=== PATIENT | male | born 1940 | race African-American/Black ===

== ENCOUNTER 2021-10-17 18:08 | Inpatient (IN) ==
[2021-10-17] MEDS ORDERED: SODIUM CHLORIDE 0.9% 1,000 ML IV STA (18:43)
[2021-10-17 21:06] LABS: Basophils % 0.1 % (0.0-0.8); Eosinophils % 0.1 % (0.00-10.9); Hematocrit 34.1 VOL% (42.0-52.0); Immature Granulocytes % 0.6 %; Immature Granulocytes Absolute 0.09 #; Lymphocytes # 0.5 10*3/uL (1.4-4.0); Lymphocytes % 2.9 % (21.2-54.2); Mean Corpuscular HGB Conc 32.3 GM/DL (32-36); Mean Corpuscular Volume 90.2 FL (87-102); Mean Platelet Volume 10.4 FL (9.6-12.0); Monocytes % 5.4 % (1.7-12.7); Neutrophils % 90.9 % (38.7-73.9); Platelet Count 300 T/CUMM (130-400); Red Blood Count 3.78 MC/CUMM (3.8-5.5); Red Cell Distribution Width 13.2 % (9.3-17.3); White Blood Count 15.6 T/CUMM (4-12)
[2021-10-17 21:15] LABS: PT Patient Result 11.7 SECS (10.5-12.0)
[2021-10-17 21:29] LABS: Albumin 2.5 G/DL (3.4-5.0); Bilirubin,Total 0.4 MG/DL (0.20-1.00); CKMB % 2.4 %; Calcium 9.4 MG/DL (8.5-10.1); High Sensitive Troponin I* 67.2 ng/L (0-78); Osmolality,Calculated 318.1 MOS/KG (273-304); Potassium 3.8 MMOL/L (3.5-5.1); Total Protein 6.9 G/DL (6.4-8.2)
[2021-10-17 21:33] LABS: Lymphocytes 4 % (20-55); Platelet Estimate Increased; Segmented Neutrophils 91 % (50-85); Total Cells Counted 100
[2021-10-17 21:35] LABS: Hypochromasia Slight; Microcytosis Slight
[2021-10-17 21:36] LABS: Ovalocytes Slight
[2021-10-17] MEDS ORDERED: GLUCAGON 1 MG VIAL IM PRN ×2 (21:41)
[2021-10-17] MEDS ORDERED: diphenhydrAMINE CAP 25 MG CAPSULE PO PRN (21:41)
[2021-10-17] MEDS ORDERED: NICOTINE 21 MG/24 HR PATCH TRANSDERM PRN (21:41)
[2021-10-17] MEDS ORDERED: DEXTROSE 50% 25 GM/50 ML SYRINGE IV PRN (21:41)
[2021-10-17] MEDS ORDERED: DOCUSATE SODIUM 100 MG CAPSULE PO PRN (21:41)
[2021-10-17] MEDS ORDERED: ZALEPLON 5 MG CAPSULE PO PRN (21:41)
[2021-10-17] MEDS ORDERED: ONDANSETRON 4 MG/2 ML VIAL IV PRN (21:41)
[2021-10-17] MEDS ORDERED: DEXTROSE 50% 25 GM/50 ML VIAL IV PRN (21:41)
[2021-10-17] MEDS ORDERED: ACETAMINOPHEN 325 MG TABLET PO PRN (21:41)
[2021-10-17] MEDS ORDERED: guaiFENesin/DM ER 600-30 MG TABLET PO PRN (21:41)
[2021-10-17] MEDS ORDERED: hydrALAZINE 20 MG/1 ML VIAL IV PRN (21:41)
[2021-10-17] MEDS ORDERED: SODIUM CHLORIDE 0.9% 1,000 ML IV SCH (22:00)
[2021-10-18] MEDS: PIPERACILLIN/TAZOBACTAM 3,375 MG in SODIUM CHLORIDE 0.9% 100 ML IV STA ×2 (00:19→01:00)
[2021-10-18 05:11] LABS: Basophils % 0.1 % (0.0-0.8); Eosinophils % 0.1 % (0.00-10.9); Hematocrit 29.7 VOL% (42.0-52.0); Hemoglobin 9.6 GM/DL (14.0-18.0); Immature Granulocytes % 0.4 %; Immature Granulocytes Absolute 0.05 #; Lymphocytes # 0.6 10*3/uL (1.4-4.0); Lymphocytes % 4.4 % (21.2-54.2); Mean Corpuscular HGB Conc 32.3 GM/DL (32-36); Mean Corpuscular Volume 91.4 FL (87-102); Mean Platelet Volume 10.7 FL (9.6-12.0); Monocytes % 7.3 % (1.7-12.7); Neutrophils % 87.7 % (38.7-73.9); Platelet Count 277 T/CUMM (130-400); Red Blood Count 3.25 MC/CUMM (3.8-5.5); Red Cell Distribution Width 13.1 % (9.3-17.3); White Blood Count 13.5 T/CUMM (4-12)
[2021-10-18 05:36] LABS: Calcium 9.1 MG/DL (8.5-10.1); Osmolality,Calculated 321.9 MOS/KG (273-304); Potassium 3.9 MMOL/L (3.5-5.1)
[2021-10-18 05:40] LABS: Hypochromasia 1+; Lymphocytes 5 % (20-55); Segmented Neutrophils 85 % (50-85); Total Cells Counted 100
[2021-10-18 05:41] LABS: Microcytosis Slight; Ovalocytes Slight
[2021-10-18] MEDS ORDERED: INFLUENZA VIRUS VACCINE 0.5 ML SYRINGE IM ONE (09:00)
[2021-10-18] MEDS: INSULIN LISPRO 100 UNIT/ML SUBCUT SCH ×4 (11:15→21:49)
[2021-10-18] MEDS: CLINDAMYCIN INJ 600 MG/50 ML PREMIX IV SCH ×2 (11:16→15:47)
[2021-10-18] MEDS: PANTOPRAZOLE 40 MG TABLET PO SCH (11:16)
[2021-10-18] MEDS: HEPARIN 5,000 UNIT/1 ML VIAL SUBCUT SCH ×2 (11:16→21:46)
[2021-10-18] MEDS: SODIUM CHLORIDE 23.4% CONC INJ 38.5 MEQ in STERILE WATER INJ 1,000 ML IV SCH (12:59)
[2021-10-18 16:16] LABS: Free T4 (Free Thyroxine) 1.2 NG/DL (0.76-1.46); Thyroid Stimulating Hormone 2.89 uIU/ml (0.358-3.74)
[2021-10-19] MEDS: CLINDAMYCIN INJ 600 MG/50 ML PREMIX IV SCH ×3 (00:29→16:12)
[2021-10-19] MEDS: SODIUM CHLORIDE 23.4% CONC INJ 38.5 MEQ in STERILE WATER INJ 1,000 ML IV SCH ×3 (00:30→23:16)
[2021-10-19] MEDS: INSULIN LISPRO 100 UNIT/ML SUBCUT SCH ×4 (09:12→23:13)
[2021-10-19] MEDS: HEPARIN 5,000 UNIT/1 ML VIAL SUBCUT SCH ×2 (09:49→16:12)
[2021-10-19] MEDS: PANTOPRAZOLE 40 MG TABLET PO SCH (09:49)
[2021-10-19 10:59] LABS: Basophils % 0.4 % (0.0-0.8); Eosinophils # 0.1 10*3/uL (0.0-0.87); Hematocrit 27.5 VOL% (42.0-52.0); Hemoglobin 8.8 GM/DL (14.0-18.0); Immature Granulocytes % 0.3 %; Immature Granulocytes Absolute 0.02 #; Lymphocytes # 0.8 10*3/uL (1.4-4.0); Lymphocytes % 11.3 % (21.2-54.2); Mean Corpuscular Volume 92.9 FL (87-102); Mean Platelet Volume 10.2 FL (9.6-12.0); Monocytes % 7.7 % (1.7-12.7); Neutrophils % 79.3 % (38.7-73.9); Platelet Count 227 T/CUMM (130-400); Red Blood Count 2.96 MC/CUMM (3.8-5.5); Red Cell Distribution Width 13.2 % (9.3-17.3)
[2021-10-19 11:24] LABS: Albumin 2.2 G/DL (3.4-5.0); Bilirubin,Total 0.4 MG/DL (0.20-1.00); Calcium 8.8 MG/DL (8.5-10.1); Osmolality,Calculated 306.6 MOS/KG (273-304); Potassium 3.5 MMOL/L (3.5-5.1); Total Protein 5.8 G/DL (6.4-8.2)
[2021-10-19 17:36] LABS: Bilirubin,Urine Negative (Negative); Blood, Urine Negative (Negative); Glucose,Urine (UA) Negative (Negative); Hyaline Casts,Urine 6 /LPF (0-3); Ketones,Urine Negative (Negative); Mucus,Urine Occasional /LPF (Occasional); Nitrite,Urine Negative (Negative); Protein,Urine Negative; RBC,Urine <1 /HPF (0-4); Sperm,Urine Occasional /HPF (Negative); Squamous Epithelial Cell,Urine Occasional /HPF (0-10); Urine Appearance CLEAR (Clear); Urine Color Yellow (Yellow); Urine Specific Gravity 1.018 (1.001-1.035); Urine Urobilinogen < 2.0 EU/DL (0.2-1.0)
[2021-10-20] MEDS: CLINDAMYCIN INJ 600 MG/50 ML PREMIX IV SCH ×3 (01:54→19:10)
[2021-10-20] MEDS: HEPARIN 5,000 UNIT/1 ML VIAL SUBCUT SCH ×3 (01:55→17:47)
[2021-10-20 05:06] LABS: Basophils % 0.3 % (0.0-0.8); Eosinophils # 0.1 10*3/uL (0.0-0.87); Eosinophils % 1.4 % (0.00-10.9); Hematocrit 27.2 VOL% (42.0-52.0); Hemoglobin 8.6 GM/DL (14.0-18.0); Immature Granulocytes % 0.6 %; Immature Granulocytes Absolute 0.04 #; Lymphocytes # 0.7 10*3/uL (1.4-4.0); Lymphocytes % 11.3 % (21.2-54.2); Mean Corpuscular HGB Conc 31.6 GM/DL (32-36); Mean Corpuscular Volume 92.5 FL (87-102); Mean Platelet Volume 10.5 FL (9.6-12.0); Monocytes % 9.1 % (1.7-12.7); Neutrophils % 77.3 % (38.7-73.9); Platelet Count 231 T/CUMM (130-400); Red Blood Count 2.94 MC/CUMM (3.8-5.5); Red Cell Distribution Width 13.1 % (9.3-17.3); White Blood Count 6.5 T/CUMM (4-12)
[2021-10-20 05:24] LABS: Calcium 8.3 MG/DL (8.5-10.1); Osmolality,Calculated 299.4 MOS/KG (273-304); Potassium 3.6 MMOL/L (3.5-5.1)
[2021-10-20 05:27] LABS: Albumin 2.2 G/DL (3.4-5.0); Bilirubin,Total 0.7 MG/DL (0.20-1.00); Calcium 8.4 MG/DL (8.5-10.1); Osmolality,Calculated 296.7 MOS/KG (273-304); Potassium 3.5 MMOL/L (3.5-5.1); Total Protein 5.8 G/DL (6.4-8.2)
[2021-10-20] MEDS: INSULIN LISPRO 100 UNIT/ML SUBCUT SCH ×4 (07:51→21:31)
[2021-10-20] MEDS: PANTOPRAZOLE 40 MG TABLET PO SCH (08:27)
[2021-10-20] MEDS: SODIUM CHLORIDE 23.4% CONC INJ 38.5 MEQ in STERILE WATER INJ 1,000 ML IV SCH (15:26)
[2021-10-20] MEDS: ERYTHROMYCIN 0.5% OPHT OINT 3.5 GM TUBE LEFT EYE SCH ×3 (15:33→21:36)
[2021-10-20] MEDS: MOXIFLOXACIN 0.5% OPH SOLN 3 ML BOTTLE LEFT EYE SCH ×2 (15:34→21:35)
[2021-10-20] MEDS ORDERED: ERYTHROMYCIN 0.5% OPHT OINT 3.5 GM TUBE LEFT EYE SCH (18:00)
[2021-10-21] MEDS: CLINDAMYCIN INJ 600 MG/50 ML PREMIX IV SCH ×3 (01:20→17:24)
[2021-10-21] MEDS: HEPARIN 5,000 UNIT/1 ML VIAL SUBCUT SCH ×3 (01:21→17:23)
[2021-10-21] MEDS: ERYTHROMYCIN 0.5% OPHT OINT 3.5 GM TUBE LEFT EYE SCH ×6 (01:25→21:55)
[2021-10-21] MEDS: SODIUM CHLORIDE 23.4% CONC INJ 38.5 MEQ in STERILE WATER INJ 1,000 ML IV SCH (04:30)
[2021-10-21] MEDS: PANTOPRAZOLE 40 MG TABLET PO SCH (09:42)
[2021-10-21] MEDS: MOXIFLOXACIN 0.5% OPH SOLN 3 ML BOTTLE LEFT EYE SCH ×3 (09:47→21:56)
[2021-10-21] MEDS: INSULIN LISPRO 100 UNIT/ML SUBCUT SCH ×4 (09:48→21:55)
[2021-10-21] MEDS: DEXTROSE 5% 1,000 ML IV SCH (13:51)
[2021-10-22] MEDS: CLINDAMYCIN INJ 600 MG/50 ML PREMIX IV SCH ×2 (01:10→09:30)
[2021-10-22] MEDS: HEPARIN 5,000 UNIT/1 ML VIAL SUBCUT SCH ×3 (01:11→17:40)
[2021-10-22] MEDS: ERYTHROMYCIN 0.5% OPHT OINT 3.5 GM TUBE LEFT EYE SCH ×6 (01:27→21:32)
[2021-10-22 04:50] LABS: Basophils % 0.4 % (0.0-0.8); Eosinophils # 0.1 10*3/uL (0.0-0.87); Eosinophils % 1.1 % (0.00-10.9); Hematocrit 26.5 VOL% (42.0-52.0); Hemoglobin 8.4 GM/DL (14.0-18.0); Immature Granulocytes % 0.5 %; Immature Granulocytes Absolute 0.04 #; Lymphocytes # 1.1 10*3/uL (1.4-4.0); Lymphocytes % 12.9 % (21.2-54.2); Mean Corpuscular HGB Conc 31.7 GM/DL (32-36); Mean Corpuscular Volume 92.3 FL (87-102); Mean Platelet Volume 11.7 FL (9.6-12.0); Monocytes % 8.9 % (1.7-12.7); Neutrophils % 76.2 % (38.7-73.9); Platelet Count 261 T/CUMM (130-400); Red Blood Count 2.87 MC/CUMM (3.8-5.5); Red Cell Distribution Width 12.9 % (9.3-17.3); White Blood Count 8.4 T/CUMM (4-12)
[2021-10-22 05:12] LABS: Calcium 8.3 MG/DL (8.5-10.1); Osmolality,Calculated 281.4 MOS/KG (273-304)
[2021-10-22] MEDS: DEXTROSE 5% 1,000 ML IV SCH (06:00)
[2021-10-22] MEDS: MOXIFLOXACIN 0.5% OPH SOLN 3 ML BOTTLE LEFT EYE SCH ×3 (09:30→21:32)
[2021-10-22] MEDS: PANTOPRAZOLE 40 MG TABLET PO SCH (09:31)
[2021-10-22] MEDS: INSULIN LISPRO 100 UNIT/ML SUBCUT SCH ×4 (09:52→21:31)
[2021-10-22 17:47] LABS: % Iron Saturation 7.8 % (18-50)
[2021-10-22 18:00] LABS: Folate 8.78 NG/ML (5.38-24.0)
[2021-10-23] MEDS: ERYTHROMYCIN 0.5% OPHT OINT 3.5 GM TUBE LEFT EYE SCH ×6 (01:46→22:15)
[2021-10-23] MEDS: HEPARIN 5,000 UNIT/1 ML VIAL SUBCUT SCH ×3 (01:46→17:06)
[2021-10-23 04:54] LABS: Basophils % 0.1 % (0.0-0.8); Eosinophils # 0.1 10*3/uL (0.0-0.87); Hematocrit 24.4 VOL% (42.0-52.0); Hemoglobin 7.7 GM/DL (14.0-18.0); Immature Granulocytes % 0.4 %; Immature Granulocytes Absolute 0.04 #; Lymphocytes # 1.2 10*3/uL (1.4-4.0); Lymphocytes % 13.3 % (21.2-54.2); Mean Corpuscular HGB Conc 31.6 GM/DL (32-36); Mean Corpuscular Volume 91.4 FL (87-102); Mean Platelet Volume 10.8 FL (9.6-12.0); Monocytes % 9.1 % (1.7-12.7); Neutrophils % 76.1 % (38.7-73.9); Platelet Count 260 T/CUMM (130-400); Red Blood Count 2.67 MC/CUMM (3.8-5.5); Red Cell Distribution Width 13.2 % (9.3-17.3)
[2021-10-23 05:18] LABS: Calcium 8.1 MG/DL (8.5-10.1); Osmolality,Calculated 282.4 MOS/KG (273-304); Potassium 3.9 MMOL/L (3.5-5.1)
[2021-10-23] MEDS: INSULIN LISPRO 100 UNIT/ML SUBCUT SCH ×4 (09:25→22:14)
[2021-10-23] MEDS: PANTOPRAZOLE 40 MG TABLET PO SCH (09:52)
[2021-10-23] MEDS: MOXIFLOXACIN 0.5% OPH SOLN 3 ML BOTTLE LEFT EYE SCH ×3 (09:52→22:15)
[2021-10-23 16:16] LABS: Thyroglob. AB < 1.8 IU/mL (<1.8)
[2021-10-23] MEDS ORDERED: FERROUS SULFATE 300 MG/5 ML UDCUP PO SCH (17:00)
[2021-10-23] MEDS: FERRIC GLUCONATE COMPLEX 125 MG in SODIUM CHLORIDE 0.9% 100 ML IV SCH (19:09)
[2021-10-24] MEDS: ERYTHROMYCIN 0.5% OPHT OINT 3.5 GM TUBE LEFT EYE SCH ×5 (02:24→18:40)
[2021-10-24] MEDS: HEPARIN 5,000 UNIT/1 ML VIAL SUBCUT SCH ×3 (02:24→18:40)
[2021-10-24 06:20] LABS: Basophils % 0.3 % (0.0-0.8); Eosinophils # 0.1 10*3/uL (0.0-0.87); Eosinophils % 1.3 % (0.00-10.9); Hematocrit 24.9 VOL% (42.0-52.0); Hemoglobin 7.8 GM/DL (14.0-18.0); Immature Granulocytes % 0.6 %; Immature Granulocytes Absolute 0.04 #; Lymphocytes # 1.2 10*3/uL (1.4-4.0); Mean Corpuscular HGB Conc 31.3 GM/DL (32-36); Mean Corpuscular Volume 92.9 FL (87-102); Mean Platelet Volume 11.1 FL (9.6-12.0); Monocytes % 12.7 % (1.7-12.7); Neutrophils % 67.1 % (38.7-73.9); Platelet Count 277 T/CUMM (130-400); Red Blood Count 2.68 MC/CUMM (3.8-5.5); Red Cell Distribution Width 13.4 % (9.3-17.3); White Blood Count 6.7 T/CUMM (4-12)
[2021-10-24 06:45] LABS: Calcium 7.9 MG/DL (8.5-10.1); Osmolality,Calculated 286.1 MOS/KG (273-304)
[2021-10-24] MEDS: INSULIN LISPRO 100 UNIT/ML SUBCUT SCH ×3 (08:26→18:39)
[2021-10-24] MEDS: PANTOPRAZOLE 40 MG TABLET PO SCH (10:14)
[2021-10-24] MEDS: MOXIFLOXACIN 0.5% OPH SOLN 3 ML BOTTLE LEFT EYE SCH ×2 (10:15→16:02)
[2021-10-24] MEDS: FERRIC GLUCONATE COMPLEX 125 MG in SODIUM CHLORIDE 0.9% 100 ML IV SCH (10:19)
[2021-10-24 16:23] VITALS: BP 128/55
== END 2021-10-24 19:24 | disposition swing bed (61) | DRG 683 ==
LOC: EDBD → EDUNIT# → N.ED 18:08 → SUATTDRO 21:41 → N.EDINP 21:41 → N.5E 10-18 01:51
PROVIDERS: ADMIT Internal Medicine; ATTEND Internal Medicine